=== PATIENT | female | born 2000 | race African-American/Black ===

== ENCOUNTER 2021-05-27 02:41 | Emergency (ER) | payer OTHER ==
[2021-05-27] MEDS ORDERED: Ondansetron ODT 8 MG TAB ONE (03:10)
[2021-05-27 03:25] LABS: Bilirubin Negative (Negative); Blood, Urine Negative (Negative); Clarity Clear (Clear); Glucose, Urine (Dipstick) Normal (Negative); Ketone, Urine Negative (Negative); Leukocyte Negative Leu/uL (Negative); Nitrite Negative (Negative); Pregnancy Test - Urine (BHCG) Negative (Negative); Pregu Control Background? CLEAR/WHITE (CLR/WHITE); Pregu Control Bar Appear? YES (CONTROL BAR); Protein, Urine (Dipstick) 20 mg/dL (Neg-Trace); Specific Gravity, Urine 1.029 (1.002-1.036); Urobilinogen Normal mg/dL (Less than 2); pH, Urine 5.5 (5.0-9.0)
[2021-05-27 03:26] LABS: Specific Gravity 1.029 (1.002-1.036)
== END 2021-05-27 03:41 | disposition home or self-care (01) ==
LOC: ERS 02:41
DX: R10.13 Epigastric pain (principal); R11.2 Nausea with vomiting, unspecified
CPT/HCPCS: 81003; 81025; 83690; 99284; Q0162